=== PATIENT | female | born 1990 | race Caucasian/White ===

== ENCOUNTER 2016-03-01 14:59 | Outpatient (CLI) | payer OTHER | END 2016-03-01 23:00 | LOC: LAB SRH 14:59 | DX: O09.213 Supervision of pregnancy with history of pre-term labor, third trimester (principal) | CPT/HCPCS: 90004; 90074; 90078; 90261; 90364; 90599; 90600; 90605; 90606; 90710; 90851; 92863; 93140; 98480; 99777 ==

== ENCOUNTER 2016-03-18 05:22 | Inpatient (IN) | payer OTHER ==
[2016-03-18] MEDS ORDERED: DICLOXACILLIN500 MG PO (07:19)
[2016-03-18] MEDS ORDERED: TUMS500 MG PO (07:20)
[2016-03-18] MEDS ORDERED: MELATONIN PO (07:22)
[2016-03-18 16:05] VITALS: BP 143/79
[2016-03-18 16:20] VITALS: BP 143/70
[2016-03-18 16:35] VITALS: BP 138/70
[2016-03-18 16:50] VITALS: BP 131/60
[2016-03-18 17:20] VITALS: BP 122/60
[2016-03-19 00:05] VITALS: BP 113/55
[2016-03-19 04:50] VITALS: BP 108/60
[2016-03-19 09:58] VITALS: BP 113/61
[2016-03-19] MEDS ORDERED: PERCOCET1 TA1 PO (11:49)
--- NOTE | 2016-03-19 11:53 | Provider's Discharge Care Plan ---
Problem, Goal, Plan Problem List 1. normal course Goals: Improve function Instructions: Follow up as directed, Take meds as directed, Take PNV and OTC iron.
--- NOTE | 2016-03-19 11:53 | Provider's Discharge Care Plan ---
Problem, Goal, Plan Problem List 1. normal course Goals: Improve function Instructions: Follow up as directed, Take meds as directed, Take PNV and OTC iron.
--- NOTE | 2016-03-19 17:01 | NUR ---
PT HAS REVIEWED THE DISCHARGE INSTRUCTIONS GIVEN, QUESTIONS ANSWERED, IS AWARE THAT SHE NEEDS TO CALL DR CALHOUN FOR A 6 WEEK FOLLOW UP APPT AND SHE NEEDS TO CALL DR HERMAN FOR AN APPT ON MON TO HAVE BABY SEEN FOR CHECKUP. PT WILL BE DISCHARGED HOME WITH BABY, SIGNIFICANT OTHER. SHE HAS SUPPORT FROM HER MOTHER WHOM SHE LIVES WITH.
== END 2016-03-19 17:15 | disposition home or self-care (01) | DRG 560 ==
LOC: OB SRH 05:22
PROVIDERS: ADMIT Obstetrics & Gynecology
PROC: 10E0XZZ Delivery of Products of Conception, External Approach (ICD-10-PCS; principal; 2016-03-18)
PROC: 3E033VJ Introduction of Other Hormone into Peripheral Vein, Percutaneous Approach (ICD-10-PCS; 2016-03-18)
DX: O71.82 Other specified trauma to perineum and vulva (principal); Z37.0 Single live birth; O99.02 Anemia complicating childbirth; D64.9 Anemia, unspecified; Z87.59 Personal history of other complications of pregnancy, childbirth and the puerperium; Z3A.39 39 weeks gestation of pregnancy
CPT/HCPCS: 40011; 40021; 90074; 91162; 91163; 91295; 92760; 92761; 92762; 92763; 92764; 92765; 92766; 92767